=== PATIENT | female | born 2000 | race Caucasian/White ===

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

== ENCOUNTER 2022-02-17 17:19 | Emergency (ER) | payer MEDICAID ==
[~2022-02-17] VITALS: Ht 162.6 cm; Wt 63.6 kg
[2022-02-17 18:18] LABS: BASOPHILS % (AUTO) 0.3 % (0-1); EOSINOPHILS % (AUTO) 0.3 % (0-6); HEMATOCRIT 40.4 % (35.0-45.0); HEMOGLOBIN 13.4 g/dl (12.0-16.0); LYMPHOCYTES # (AUTO) 1.6 X10'3 (1.1-4.8); LYMPHOCYTES % (AUTO) 13.3 % (21-51); MEAN CORPUSCULAR HEMOGLOBIN 29.9 PG (27.0-31.0); MEAN CORPUSCULAR HGB CONC 33.1 g/dL (33.0-36.5); MEAN CORPUSCULAR VOLUME 90.5 FL (78-98); MEAN PLATELET VOLUME 10.2 FL (7.4-10.4); MONOCYTES # (AUTO) 0.8 X10'3 (0-0.9); MONOCYTES % (AUTO) 6.8 % (2-12); NEUTROPHILS # (AUTO) 9.4 X10'3 (1.8-7.7); NEUTROPHILS % (AUTO) 79.3 % (42-75); PLATELET COUNT 249 X10'3 (140-440); RED BLOOD COUNT 4.47 X10'6 (4.20-5.60); RED CELL DISTRIBUTION WIDTH 13.5 % (11.5-14.5); WHITE BLOOD COUNT 11.9 X10'3 (4.5-11.0)
[2022-02-17 18:32] LABS: ALANINE AMINOTRANSFERASE 21 U/L (12-78); ALBUMIN 3.5 G/DL (3.4-5.0); ALBUMIN/GLOBULIN RATIO 0.8 (1.1-1.5); ALKALINE PHOSPHATASE 52 IU/L (46-116); ANION GAP 4 (8-16); ASPARTATE AMINO TRANSFERASE 18 U/L (10-37); BILIRUBIN,TOTAL 0.3 MG/DL (0.1-1.0); BLOOD UREA NITROGEN 4 MG/DL (7-18); CALCIUM 8.7 MG/DL (8.5-10.1); CHLORIDE 106 MMOL/L (99-107); CREATININE 0.67 MG/DL (0.40-0.90); GLUCOSE 111 MG/DL (70-104); LIPASE 68 U/L (73-393); POTASSIUM 3.6 MMOL/L (3.5-5.1); SODIUM 139 MMOL/L (135-145); TOTAL CARBON DIOXIDE 29.1 MMOL/L (24-32); TOTAL PROTEIN 7.8 G/DL (6.4-8.2); eGFR > 90 ML/MIN
[2022-02-18] MEDS ORDERED: bisacodyl 5mg tablet.DR PO ONE (00:10)
[2022-02-18] MEDS ORDERED: ibuprofen tablet 400 MG TABLET PO ONE (00:10)
[2022-02-18] MEDS ORDERED: acetaminophen 325mg tablet PO ONE (00:10)
[2022-02-18 01:18] LABS: URINE HCG NEGATIVE (NEG)
[2022-02-18 01:21] LABS: CLARITY,URINE CLOUDY (Clear); COLOR,URINE YELLOW (Yellow); GLUCOSE, URINE NEGATIVE (Neg); KETONES,URINE NEGATIVE (Neg); LEUKOCYTE ESTERASE ,URINE MODERATE (Neg); NITRITES, URINE POSITIVE (Neg); OCCULT BLOOD,URINE MODERATE (Neg); PH,URINE 5.5 (4.8-8.0); PROTEIN,URINE 100 mg/dl (Neg); UROBILINOGEN,URINE 0.2 E.U/dL (0.2-1.0)
[2022-02-18 01:31] LABS: UA COLLECTION TYPE CLN CATCH MIDSTREAM
[2022-02-18 01:39] LABS: WBC,URINE TNTC /HPF (0-4)
[2022-02-18 01:40] LABS: BACTERIA,URINE 3+ /HPF (Neg); MUCUS STRANDS FEW /LPF (Neg); SQUAMOUS EPITHELIAL CELL,UR FEW /LPF (FEW); WBC CLUMPS,URINE MODERATE /HPF (NEGATIVE)
[2022-02-18] MEDS ORDERED: ciprofloxacin 250mg tablet PO ONE (02:05)
[2022-02-18] MEDS ORDERED: ondansetron 4mg rapidly disintigrating tab PO ONE (02:05)
[2022-02-18] MEDS ORDERED: CIPR-202 PO (02:09)
[2022-02-18] MEDS ORDERED: BISA-78 PO (02:09)
[2022-02-18 02:30] VITALS: BP 122/58
== END 2022-02-18 03:19 | disposition home or self-care (01) ==
LOC: ER 17:20
DX: N39.0 Urinary tract infection, site not specified (principal); K59.00 Constipation, unspecified; R10.84 Generalized abdominal pain; Z86.69 Personal history of other diseases of the nervous system and sense organs; Z79.2 Long term (current) use of antibiotics; Z79.899 Other long term (current) drug therapy
CPT/HCPCS: 36415; 76700; 80053; 81001; 81025; 83690; 85025; 87077; 87088; 87186; 99284

== ENCOUNTER 2025-05-11 22:26 | Emergency (ER) | payer MEDICAID ==
[~2025-05-11] VITALS: Ht 165.1 cm; Wt 87.0 kg
[~2025-05-11 22:26] MED LIST changes: +BISA-78 PO
[2025-05-11 22:29] VITALS: BP 150/81; PULSE 96; RESP 17; O2SAT 98
--- NOTE | 2025-05-11 23:24 | Physician Documentation ---
History of Present Illness ~ Chief Complaint: Abscess Stated Complaint: WOUND L LEG Time Seen by MD: 23:14 Primary Medical Doctor: caro ADHIKARI 24-year-old female, overall healthy, presenting with an abscess on her buttocks She tells me that over the past 3 or 4 days she has developed an area of pain and swelling on her left buttocks. She thinks there is an abscess there. It st arted out as a small pimple. Now she is not able to sit on it. It feels like a lot of pressure. Fevers or chills. No other related symptoms. No drainage from the wound. No history of abscesses or infections in the past. Tetanus Within 5 Years: Yes Medication Reconciliation Allergies: Coded Allergies: No Known Allergies (Unverified , 11/06/16) Scheduled Amoxicillin Trihydrate (Amoxicillin), 1 TAB PO TID Bisacodyl (Dulcolax), 4 TAB PO ONCE Past Medical History Past Medical History: Headache, Seizures Past Surgical History: no surgical history Alcohol Use: None Drug Use: none Lives with: Family Lives In: Home Occupation: student Review of Systems Constitutional: Denies: fever Musculoskeletal: Reports: pain, swelling Integumentary: Reports: wound(s) Physical Exam Vital Signs: Temperature: 98.2, Source: Temporal, Heart Rate: 96, Respiratory Rate: 17, BP: 150/81, Pulse Oximetry: 98, Weight: 87.000 Oxygen Flow Rate: 0 Physical Exam General: This is a pleasant and mildly anxious appearing young female, sister at bedside Heart: Mild tachycardic, appears regular normal-appearing peripheral perfusion Lungs: normal work of breathing, normal oxygen saturation on room air Abdomen: Soft, nondistended, nontender all quadrants Skin: On the left medial buttocks, the patient has an area of swelling and erythema with a central head, area measures approximately 8 cm in diameter, very tender to palpation, with fluctuance in the center Neuro: Alert and oriented Psychiatric: Appears anxious but is cooperative with exam Procedures I & D Procedure : Site: left buttocks Anesthesia: Lidocaine w/ Epi Blade Size: 11 Prep/Supplies: betadine prep Incision: mass incised, pus drained, blood drained Tolerated Procedure Well?: yes, no complications Progress Results/Orders Results/Orders Completed Orders - HEIDI VEGA MD Lidocaine 1% W/Epi 1:100,000 (Xylocaine (05/11/25 23:25) Vital Signs 05/11/25 22:29 Temp 98.2 Pulse 96 Resp 17 B/P (MAP) 150/81 Pulse Ox 98 O2 Flow Rate 0 Medical Decision Making Additional information obtaine: N/A Findings na Differential Dx:Considerations: Include: Abscess, Bacteremia, Cellulitis, Septicemia Additional Comment The patient presents with a an area of painful swelling on her buttocks. Her history and exam are all consistent with an abscess surrounding cellulitis. The abscess was drained. She will be given Bactrim and discharged with antibiotics and home care instructions including warm compresses/Sitz baths. Return precautions given. Departure Time of Disposition: 00:11 Disposition: 01 HOME / SELF CARE / HOMELESS Impression: Primary Impression: Abscess of buttock, left Condition: Improved Discharge Instructions: Abscess, Care After Referrals: NO PRIMARY CARE PROVIDER (PCP) Prescriptions Sulfamethoxazole/Trimethoprim (Bactrim Ds Tablet) 800 Mg-160 Mg Tablet 1 TAB PO Q12H for 7 Days, #13 TAB Prov: HEIDI VEGA MD 05/12/25 Education Educated: Patient Educated regarding: diagnosis, treatment, need for follow up Signature Scribe Signature: na Attestation: HEIDI Moyer MD May 11, 2025 23:24
[2025-05-11] MEDS: LIDOcaine 1% W/epiNEPHrine 1:100,000 20ml vial SQ ONE (23:55)
[2025-05-12] MEDS ORDERED: SULF1TAB49 PO (00:12)
[2025-05-12] MEDS: sulfamethoxazole/trimethoprim DS (800/160mg) tablet PO ONE (00:37)
[2025-05-12 00:38] VITALS: TEMP 98.2
== END 2025-05-12 00:39 | disposition home or self-care (01) ==
LOC: ER 22:27
DX: L02.31 Cutaneous abscess of buttock (principal)
CPT/HCPCS: 10060; 99283

== ENCOUNTER 2025-05-28 19:45 | Emergency (ER) | payer MEDICAID ==
[~2025-05-28] VITALS: Ht 167.6 cm; Wt 88.1 kg
[2025-05-28 19:51] VITALS: BP 120/70; PULSE 102; RESP 18; O2SAT 99
--- NOTE | 2025-05-28 22:24 | Physician Documentation ---
History of Present Illness ~ Chief Complaint: Abscess Stated Complaint: ABCESS Time Seen by MD: 21:13 Primary Medical Doctor: cain gutierrez HPI 25-year-old female returns to the emergency department for evaluation of the buttocks abscess. States she had incision and drainage done approximately a week ago for which she took a course of antibiotics and it has healed. Subsequently he has developed two additional abscesses. Saw her primary care physician and was provided a topical cream. Reports that the abscess and become painful and increased in size with redness. Both abscesses or to the left buttocks. Both abscesses or a proximally 1 cm 2-1/2 cm in size with induration. Tetanus Within 5 Years: Yes Medication Reconciliation Allergies: Coded Allergies: No Known Allergies (Unverified , 11/06/16) Scheduled Amoxicillin Trihydrate (Amoxicillin), 1 TAB PO TID Bisacodyl (Dulcolax), 4 TAB PO ONCE Past Medical History Past Medical History: Headache, Seizures Past Surgical History: no surgical history Alcohol Use: None Drug Use: none Lives with: Family Lives In: Home Occupation: student Review of Systems All Other Systems at this time: Reviewed and Negative ROS HPI Integumentary: Reports: see HPI Physical Exam Vital Signs: RN Vital Signs have been reviewed: Yes, Temperature: 98.5, Source: Oral, Heart Rate: 102, Respiratory Rate: 18, BP: 120/70, Pulse Oximetry: 99, Weight: 88.100 Oxygen Flow Rate: 0 General Appearance: alert, WD/WN, moderate distress EENT: normal ENT inspection Back: normal inspection Abscess/Mass : Site: Left buttuck Appearance: red, tender, hot, fluctuant, firm Length (cm): 2 Width (cm): 1 Cellulitis: localized Cellulitis Length (cm): 4 Cellulitis Width (cm): 4 Comment A 2nd abscess of the just lateral to the 1st is only 1 cm x 1 cm without flexion and/or erythema. No indication for incision and drainage. Skin: normal color Neurologic: oriented x4 Lymphatic: normal inspection Psychiatric: normal mood/affect Procedures I & D Procedure : Site: Left buttocks Anesthesia: Lidocaine Volume Anesthetic (mls): 1 Blade Size: 11 Prep/Supplies: betadine prep Incision: mass incised, pus drained Tolerated Procedure Well?: yes, no complications Procedure Note Wound was prepped and draped in sterile fashion. Anesthetized with 1% lidocaine with Epi Abscess was then incised with a 11. Blade. Copious amounts of pus expressed. No packing indicated. Patient tolerated procedure well. Progress Results/Orders Results/Orders Vital Signs 05/28/25 05/28/25 19:51 22:33 Temp 98.5 98.5 Pulse 102 Resp 18 B/P (MAP) 120/70 Pulse Ox 99 O2 Flow Rate 0 Medical Decision Making Additional information obtaine: old records Findings 25-year-old female requires incision and drainage of abscess to the left buttocks. The # 2 abscess not requiring incision and drainage. Patient tolerated procedure well. Please see procedure note. Patient to continue with the antibiotic therapy and do warm moist soaks. She will follow up with the primary care physician in 2-3 days. Differential Dx:Considerations: Include: Abscess, Bacteremia, Cellulitis, Erysipelas, Felon, Gas gangrene, Hidrademitis suppurativa, Impetigo, Lymphangitis, Osteromyelitis, Paronychia, Septicemia, Other Departure Disposition: 01 HOME / SELF CARE / HOMELESS Impression: Primary Impression: Abscess of buttock, left Condition: Improved Discharge Instructions: Skin Abscess, [id number], Cellulitis, Adult, [id number], Incision and Drainage Additional Instructions: Tonight in the emergency department you received in his in his she is in and drainage and a left buttocks abscess. Please do frequent warm soaks continue with the antibiotics and follow up with the primary care physician in 48-72 hours for recheck. Please return in the emergency department if worse. Referrals: NO PRIMARY CARE PROVIDER (PCP) Education Educated: Patient Educated regarding: diagnosis, treatment, prognosis, need for follow up Signature Scribe Signature: . Attestation: . HEIDI SHERIDAN PAC May 28, 2025 22:24
[2025-05-28 22:33] VITALS: TEMP 98.5
== END 2025-05-28 22:35 | disposition home or self-care (01) ==
LOC: ER 19:46
DX: L02.31 Cutaneous abscess of buttock (principal); Z79.899 Other long term (current) drug therapy
CPT/HCPCS: 10060; 99283; A6449